=== PATIENT | female | born 2000 ===

== ENCOUNTER 2022-02-04 10:40 | Outpatient (CLI) | payer OTHER | END 2022-02-04 11:45 | disposition home or self-care (01) | LOC: PRENATAL 10:40 | PROVIDERS: ATTEND Obstetrics & Gynecology Maternal & Fetal Medicine | DX: O35.0XX0 Maternal care for (suspected) central nervous system malformation in fetus, not applicable or unspecified (principal); O35.3XX0 Maternal care for (suspected) damage to fetus from viral disease in mother, not applicable or unspecified; O34.40 Maternal care for other abnormalities of cervix, unspecified trimester ==

== ENCOUNTER 2022-03-08 15:54 | Outpatient (CLI) | payer OTHER | END 2022-03-08 16:56 | disposition home or self-care (01) | LOC: PRENATAL 15:54 | PROVIDERS: ATTEND Obstetrics & Gynecology Maternal & Fetal Medicine | DX: O35.0XX0 Maternal care for (suspected) central nervous system malformation in fetus, not applicable or unspecified (principal); O35.3XX0 Maternal care for (suspected) damage to fetus from viral disease in mother, not applicable or unspecified ==

== ENCOUNTER 2022-05-13 15:32 | Outpatient (CLI) | payer OTHER | END 2022-05-13 16:10 | disposition left against medical advice (07) | LOC: OBS/DEL 15:32 | PROVIDERS: ATTEND Obstetrics & Gynecology | DX: O26.893 Other specified pregnancy related conditions, third trimester (principal); Z3A.00 Weeks of gestation of pregnancy not specified ==

== ENCOUNTER 2022-06-07 13:11 | Outpatient (CLI) | payer OTHER | END 2022-06-07 14:25 | disposition home or self-care (01) | LOC: PRENATAL 13:11 | PROVIDERS: ATTEND Obstetrics & Gynecology Maternal & Fetal Medicine | DX: O36.8199 Decreased fetal movements, unspecified trimester, other fetus (principal); Z3A.34 34 weeks gestation of pregnancy ==